=== PATIENT | male | born 1970 | race Caucasian/White ===

== ENCOUNTER 2022-03-23 14:22 | Emergency (ER) | payer BC ==
[~2022-03-23] VITALS: Ht 167.6 cm; Wt 88.5 kg
[2022-03-23] MEDS ORDERED: LIPITOR20 MG PO (15:12)
[2022-03-23] MEDS ORDERED: CHLORTHALIDONE25 MG PO (15:13)
[2022-03-23] MEDS ORDERED: LEVOTHYROXINE125 MC1 PO (15:15)
[2022-03-23] MEDS ORDERED: K-TAB10 MEQ PO (15:15)
[2022-03-23 15:52] LABS: BASO # 0.1 10*3/uL (0.0-0.1); BASO % 0.5 % (0.0-1.0); EOS # 0.1 10*3/uL (0.0-0.4); EOS % 0.5 % (1.0-4.0); HEMATOCRIT 41.1 % (42.0-52.0); LYMPH # 1.6 10*3/uL (1.3-4.4); LYMPH % 14.3 % (27.0-41.0); MEAN CELL VOLUME 89.2 fl (80.0-94.0); MEAN CORPUSCULAR HGB 30.8 pg (27.0-31.0); MEAN CORPUSCULAR HGB CONC 34.5 g/dl (33.0-37.0); MONO # 0.7 10*3/uL (0.1-1.0); MONO % 6.3 % (3.0-9.0); NEUT # 8.7 10*3/uL (2.3-7.9); NEUT % 78.1 % (47.0-73.0); PLATELET COUNT AUTOMATED 401 10*3/uL (130-400); RED BLOOD COUNT 4.61 10*6/uL (4.50-5.90); RED CELL DISTRI WIDTH 12.7 % (0-14.5); WHITE BLOOD COUNT 11.2 10*3/uL (4.8-10.8)
[2022-03-23 16:11] LABS: ALKALINE PHOSPHATASE 72 U/L (45-117); BUN 15 mg/dl (7-24); CHLORIDE 104 mmol/L (98-107); CREATININE 1.36 mg/dL (0.70-1.30); LIPASE 692 U/L (73-393); POTASSIUM 2.9 mmol/L (3.5-5.1); SGPT/ALT 38 U/L (12-78); SODIUM 141 mmol/L (136-145)
[2022-03-23 16:12] LABS: ACT PARTIAL THROMBO TIME 25.9 SECONDS (20.0-32.1)
[2022-03-23] MEDS ORDERED: VISTARIL25 M2 PO (18:54)
== END 2022-03-23 19:12 | disposition home or self-care (01) ==
LOC: ED 14:22
PROVIDERS: Physician Assistant
DX: F41.9 Anxiety disorder, unspecified (principal); Z79.899 Other long term (current) drug therapy